=== PATIENT | male | born 1995 | race Caucasian/White ===

== ENCOUNTER 2017-01-07 21:30 | Emergency (ER) | payer BC | END 2017-01-08 02:03 | disposition home or self-care (01) | LOC: D.ER 21:30 → EDBD 21:30 → D.ER 01-08 02:03 | DX: K52.9 Noninfective gastroenteritis and colitis, unspecified (principal); R11.10 Vomiting, unspecified; K29.00 Acute gastritis without bleeding; F41.9 Anxiety disorder, unspecified ==

== ENCOUNTER → 2018-04-29 09:29 | Outpatient (CLI) | payer BC | END | disposition home or self-care (01) | LOC: D.CT 09:29 | DX: R63.4 Abnormal weight loss (principal) ==

== ENCOUNTER → 2018-05-10 09:47 | Outpatient (CLI) | payer BC ==
[2018-05-10 10:36] LABS: AMYLASE - SERUM 98 U/L (25-115); LIPASE 148 U/L (73-393)
== END | disposition home or self-care (01) ==
LOC: D.LAB 09:47
PROVIDERS: Internal Medicine Gastroenterology
DX: R10.13 Epigastric pain (principal); R11.10 Vomiting, unspecified; R79.89 Other specified abnormal findings of blood chemistry